=== PATIENT | male | born 1930 | race Caucasian/White ===

== ENCOUNTER → 2016-08-25 | Outpatient (CLI) | payer MEDICARE ==
[~2016-08-25] MED LIST: CALC667C6 PO; CHOL2000 PO; DRON400T PO; HYDR-2666 PO; LISI-334 PO; MULT1TAB52 PO; OXYC5TAB PO; PHEN100C PO; WARF4TAB7 PO
--- NOTE | 2016-08-25 13:28 | RAD ---
Exam performed: Nuclear medicine whole-body bone scan. Indication: Elevated PSA, prostate cancer . Patient fell 6 weeks ago, no compression fracture and rib fracture Date of Service: 08/25/16 Comparison:Comparison made to whole-body bone scan from 03/21/14 and x-ray bilateral knees from 07/28/16 Discussion: Following the intravenous administration of 27.0 mCi of MDP labeled with Technetium, delayed whole-body gamma camera images of the axial and appendicular skeleton were obtained. There is symmetric excretion of radiotracer via both kidneys with accumulation in the urinary bladder. Areas of increased scintigraphic activity is seen in the left hip. Increased activity also seen in right left 10th rib. Degenerative pattern of activity seen in both shoulders, right knee and thoracolumbar spine Impression: 1. Increased scintigraphic activity about the left hip, new since previous study. While this could be related to degenerative arthrosis, however metastasis not excluded. Correlate with x-ray right hip 2. Focal increased scintigraphic activity in the right 10th rib. This may correlate with the given history of trauma and known rib fracture. Again correlation with radiographs recommended. 3. Degenerative pattern of activity seen in both shoulders and right knee.
== END | disposition home or self-care (01) ==
LOC: NM 09:00
PROVIDERS: ATTEND Urology
DX: C61 Malignant neoplasm of prostate (principal); R97.20 Elevated prostate specific antigen [PSA]
CPT/HCPCS: 78306; 96374; A9503